=== PATIENT | male | born 1975 | race Caucasian/White ===

== ENCOUNTER 2016-12-10 14:13 | Emergency (ER) | payer OTHER ==
[2016-12-10 14:40] VITALS: BP 148/103; PULSE 89; RESP 15; TEMP 98.3
[2016-12-10] MEDS ORDERED: CEPHALEXIN 500 MG CAP PO STA (14:54)
[2016-12-10] MEDS ORDERED: CEPHALEXIN 500MG STARTER PACK 4 CAP BTL PO STA (14:54)
--- NOTE | 2016-12-10 14:55 | ED ---
General Adult HPI - General Chief complaint: Wound/Laceration Stated complaint: lac left foot Time Seen by Provider: 12/10/16 14:22 Source: patient, RN notes reviewed, old records reviewed Mode of arrival: ambulatory Limitations: no limitations - History of Present Illness Initial comments: This is a 41-year-old male ER for evaluation regarding laceration to left ankle posterior ankle. Patient's full range of motion, pain with flexion, patient's injury occurred 2 days ago, minimal bleeding at the time, patient did apply bandage and has been applying Neosporin as well as had significant clearing, patient has no drainage from site. No surrounding erythema, no fevers. Patient again denies any lack of range of motion. - Related Data Previous Rx's Medication Instructions Recorded Cephalexin [Keflex] 500 mg PO Q8HR #21 cap 12/10/16 Allergies Allergy/AdvReac Type Severity Reaction Status Date / Time No Known Allergies Allergy Verified 12/10/16 14:32 Review of Systems ROS Statement: Those systems with pertinent positive or pertinent negative responses have been documented in the HPI. ROS Other: All systems not noted in ROS Statement are negative. Past Medical History Past Medical History: No Reported History History of Any Multi-Drug Resistant Organisms: None Reported Past Surgical History: Appendectomy, Cholecystectomy, Tonsillectomy Additional Past Surgical History / Comment(s): left groin lymph node removal Past Psychological History: No Psychological Hx Reported Smoking Status: Current every day smoker Past Alcohol Use History: Rare Past Drug Use History: None Reported General Exam - General Exam Comments Initial Comments: Patient does have irregular laceration with healing edges, systolic blood edges to left ankle, no evidence of infection Limitations: no limitations General appearance: alert, in no apparent distress Head exam: Present: atraumatic, normocephalic, normal inspection Eye exam: Present: normal appearance, PERRL, EOMI. Absent: scleral icterus, conjunctival injection, periorbital swelling ENT exam: Present: normal exam, mucous membranes moist Neck exam: Present: normal inspection. Absent: tenderness, meningismus, lymphadenopathy Respiratory exam: Present: normal lung sounds bilaterally. Absent: respiratory distress, wheezes, rales, rhonchi, stridor Cardiovascular Exam: Present: regular rate, normal rhythm, normal heart sounds. Absent: systolic murmur, diastolic murmur, rubs, gallop, clicks GI/Abdominal exam: Present: soft, normal bowel sounds. Absent: distended, tenderness, guarding, rebound, rigid Extremities exam: Present: normal inspection, full ROM, normal capillary refill. Absent: tenderness, pedal edema, joint swelling, calf tenderness Back exam: Present: normal inspection Neurological exam: Present: alert, oriented X3, CN II-XII intact Psychiatric exam: Present: normal affect, normal mood Skin exam: Present: warm, dry, intact, normal color. Absent: rash Course Vital Signs 12/10/16 12/10/16 14:15 14:38 Temperature 98.1 F 98.3 F Pulse Rate 90 89 Respiratory 18 15 Rate Blood Pressure 138/95 148/103 O2 Sat by Pulse 99 98 Oximetry Medical Decision Making - Medical Decision Making 41 male the ER for evaluation of left ankle laceration, healing laceration, no evidence of infection, we'll start prophylactic antibiotics secondary to healing by secondary intent and to be discharged Disposition Clinical Impression: Laceration, Laceration of left ankle Disposition: HOME SELF-CARE Condition: Good Instructions: Acute Wound Care (ED) Prescriptions: Cephalexin [Keflex] 500 mg PO Q8HR #21 cap Referrals: Star Gonzales MD [Primary Care Provider] - 1-2 days
== END 2016-12-10 15:12 | disposition home or self-care (01) ==
LOC: EC 14:13
DX: S91.012A Laceration without foreign body, left ankle, initial encounter (principal); W26.8XXA Contact with other sharp object(s), not elsewhere classified, initial encounter
CPT/HCPCS: 99283